=== PATIENT | male | born 1985 | race Caucasian/White ===

== ENCOUNTER 2018-10-30 03:38 | Inpatient (IN) | payer OTHER ==
[2018-10-30] VITALS (23 sets, daily range): BP systolic 98–141; BP diastolic 43–103; PULSE 87–113; RESP 10–30; Ht 170.2 cm; Wt 99.6 kg
[~2018-10-30] VITALS: Ht 170.2 cm; Wt 99.6 kg
[2018-10-30] MEDS ORDERED: ONDANSETRON 4 MG INJ IV STA (03:40)
[2018-10-30] MEDS ORDERED: SOD CHLORIDE 0.9% 1,000 ML IV STA (03:40)
[2018-10-30] MEDS ORDERED: ALBUTEROL 0.083% (NEB) 2.5 MG/3 ML AMP NEB STA (03:55)
[2018-10-30] MEDS ORDERED: IPRATROPIUM (NEB) 0.5 MG/2.5 ML AMP NEB STA (03:55)
[2018-10-30] MEDS ORDERED: VANCOMYCIN 1 GM (PMX) 250 ML IVPB STA (04:41)
[2018-10-30] MEDS ORDERED: PIPER-TAZO 3.375 GM IV (PMX) 100 ML IVPB STA (04:41)
[2018-10-30] MEDS ORDERED: NALOXONE 2 MG SYG IV ONE (05:00)
[2018-10-30] MEDS ORDERED: ONDANSETRON 4 MG INJ IV PRN ×2 (05:00→06:00)
[2018-10-30] MEDS ORDERED: ACETAMINOPHEN 325 MG TAB PO PRN (05:00)
--- NOTE | 2018-10-30 05:09 | ERD ---
ER Documentation Chief Complaint Chief Complaint RICARDO,from a constitution party,overdosed on cocaine HPI This is a 33-year-old male presents to the emergency room for evaluation of overdose. According to EMS this patient and 3 of his friends were at a constitution party and there were snorting an unknown substance. All 4 of were found unconscious. According to EMS they had to give this patient 6 mg of Narcan before he had any type of response. The patient then vomited. The patient does not know what the powder was that he snorted. The patient states that he was drinking alcohol as well. The patient denies any chest pain or fevers or abdominal pain at this time but does state that he is short of breath. ROS All systems reviewed and are negative except as per history of present illness. Allergies Allergies: Coded Allergies: No Known Allergy (Unverified , 10/30/18) PMhx/Soc Medical and Surgical Hx: pt denies Medical Hx, pt denies Surgical Hx Hx Alcohol Use: Yes Hx Substance Use: Yes (cocaine, heroin) Hx Tobacco Use: No Smoking Status: Never smoker Physical Exam Vitals Vital Signs Date Temp Pulse Resp B/P (MAP) Pulse Ox O2 O2 Flow FiO2 Time Delivery Rate 10/30/18 111 24 91 Simple 12.0 04:15 Mask 10/30/18 97.7 112 17 140/92 88 03:46 (108) Physical Exam INITIAL VITAL SIGNS: Reviewed by me GENERAL: The patient is shoveled, mild respiratory distress HEENT: Dry mucous membranes, pupils equal, round, and reactive to light. EOMI. There is no scleral icterus. NECK: C-spine is soft and supple, there is no meningismus. There is no cervical lymphadenopathy. LUNGS: Breath sounds bilaterally HEART: Regular rate and rhythm, no murmurs, clicks, rubs or gallops. ABDOMEN: Soft, non-tender, non-distended. There are bowel sounds in all four quadrants. No rebound or guarding. EXTREMITIES: There is no peripheral cyanosis or edema. No focal swelling or erythema. NEUROLOGICAL: The patient moves all four extremities with 5/5 strength. Cranial nerves II - XII are intact. Normal gait. Alert and oriented SKIN: There is no apparent rash or petechiae. HEME/LYMPHATIC: There is no evidence of excessive bruising or lymphedema. PSYCHIATRIC: The patient does not appear anxious or depressed. Result Diagram: 10/30/18 04010/30/18 0401 Results 24 hrs Laboratory Tests Test 10/30/18 04:01 10/30/18 04:30 White Blood Count 10.8 10^3/ul Red Blood Count 5.59 10^6/ul Hemoglobin 16.3 g/dl Hematocrit 49.1 % Mean Corpuscular Volume 87.8 fl Mean Corpuscular Hemoglobin 29.2 pg Mean Corpuscular Hemoglobin Concent 33.2 g/dl Red Cell Distribution Width 13.2 % Platelet Count 262 10^3/UL Mean Platelet Volume 10.2 fl Immature Granulocytes % 1.000 % Neutrophils % 65.5 % Lymphocytes % 27.6 % Monocytes % 5.1 % Eosinophils % 0.5 % Basophils % 0.3 % Nucleated Red Blood Cells % 0.0 /100WBC Immature Granulocytes # 0.110 10^3/ul Neutrophils # 7.0 10^3/ul Lymphocytes # 3.0 10^3/ul Monocytes # 0.6 10^3/ul Eosinophils # 0.1 10^3/ul Basophils # 0.0 10^3/ul Nucleated Red Blood Cells # 0.0 10^3/ul Sodium Level 142 mmol/L Potassium Level 3.5 mmol/L Chloride Level 102 mmol/L Carbon Dioxide Level 23 mmol/L Anion Gap 17 Blood Urea Nitrogen 12 mg/dl Creatinine 1.00 mg/dl Est Glomerular Filtrat Rate mL/min > 60 mL/min Glucose Level 180 mg/dl Calcium Level 9.2 mg/dl Total Bilirubin 0.2 mg/dl Direct Bilirubin 0.00 mg/dl Indirect Bilirubin 0.2 mg/dl Aspartate Amino Transf (AST/SGOT) 115 IU/L Alanine Aminotransferase (ALT/SGPT) 143 IU/L Alkaline Phosphatase 101 IU/L Total Protein 7.6 g/dl Albumin 4.5 g/dl Globulin 3.10 g/dl Albumin/Globulin Ratio 1.45 Salicylates Level < 1.0 mg/dl Acetaminophen Level < 10.0 ug/ml Ethyl Alcohol Level 92.0 mg/dl Blood Gas Specimen Source Blood arterial Arterial Blood Date Drawn 10/30/2018 4:30:00 AM Arterial Blood pH (Temp corrected) 7.193 Arterial Blood pCO2 (Temp correct) 57.9 mmhg Arterial Blood pO2 (Temp corrected) 67.7 mmHG Arterial Blood HCO3 21.8 mmol/L Arterial Blood Base Excess -7.4 mmol/L Arterial Blood Oxygen Saturation 87.5 mmHG Krishan Test ACCEPTAB Arterial Blood Gas Puncture Site Right Radial Arterial Blood Carboxyhemoglobin 0.3 % Arterial Blood Methemoglobin 0.4 % Blood Gas A-a O2 Differential 587.4 mmHg Oxyhemoglobin Percent 86.9 % Blood Gas Temperature 37.0 C Blood Gas Modality MASK - NRB FiO2 100.0 % Blood Gas Critical Value Read Back Parish DEAL MD Blood Gas Notified Whom AA Blood Gas Notified Time 10/30/2018 4:42:48 AM Current Medications Medications Dose Sig/Zofia Start Time Status Last (Trade) Ordered Route PRN Stop Time Admin Dose Reason Admin Sodium 1,000 ml @ Q1H STAT 10/30/18 DC 10/30/18 Chloride 1,000 mls/hr IV 03:40 04:07 10/30/18 04:39 Ondansetron 4 mg ONCE STAT 10/30/18 DC 10/30/18 HCl (Zofran IV 03:40 04:06 Inj) 10/30/18 03:43 Albuterol 5 mg ONCE STAT 10/30/18 DC 10/30/18 (Proventil NEB 03:55 04:15 0.083% (Neb)) 10/30/18 03:56 Ipratropium 0.5 mg ONCE STAT 10/30/18 DC 10/30/18 Bowie NEB 03:55 04:15 (Atrovent 10/30/18 03:56 0.02% (Neb)) Vancomycin 250 ml @ ONCE STAT 10/30/18 HCl 125 mls/hr IVPB 04:41 10/30/18 06:40 Piperacillin 100 ml @ ONCE STAT 10/30/18 10/30/18 Sod/ 200 mls/hr IVPB 04:41 04:55 Tazobactam 10/30/18 05:10 Sod Naloxone 2 mg ONCE ONCE 10/30/18 DC 10/30/18 HCl IV 05:00 04:59 (Narcan) 10/30/18 05:01 Ondansetron 4 mg ER BRIDGE 10/30/18 HCl (Zofran PRN IV 05:00 Inj) NAUSEA/VOMITI 10/31/18 04:59 NG 650 mg ER BRIDGE 10/30/18 Acetaminophen PRN PO 05:00 (Tylenol .MILD PAIN 10/31/18 04:59 Tab) 1-3 OR TEMP Naloxone HCl 500 ml @ 0 TITRATE IV 10/30/18 2 mg/ mls/hr 05:30 Dextrose Procedures/MDM Chest X-ray 1V Interpreted by me: Soft Tissue: No acute abnormalities Bones: No acute abnormalities Mediastinum/Cardiac Silhouette/Lungs: [No acute abnormalities] This 33-year-old male presents to the ER for evaluation after he snorted no known powder. The patient did this with 3 of his friends and all 4 of these people were found unconscious and were taken at different hospitals. EMS stated they gave this patient 6 mg of Narcan before he had any type of response. It is possible that this patient starting fentanyl given the large amount of Narcan which is required. On my exam the patient has some dried vomit around his mouth however he was responsive. After approximately 30 minutes of being in the emergency room the patient started to become slightly obtunded again and was given 2 mg IV of Narcan with a resolution of his drowsiness. The patient's pulse ox was 79% on room air and on a simple mask was 88%. An ABG was obtained and the patient's CO2 level is elevated likely from respiratory depression secondary to opiate use. The patient's pH was 7.1. The patient is on a BiPAP candidate at this time given the fact that he did vomit. He has had a good response to the Narcan and will be started on a Narcan drip. The patient will benefit from admission to the intensive care unit. I have started this patient on vancomycin and Zosyn to cover him for any aspiration pneumonia. I spoken to panel physician Dr. Benz is aware and agrees with the plan of care. Critical Care: Excluding all billable procedures Time: 48 minutes Treatments/Evaluations: Close monitoring and treatment of unstable vital signs, cardiorespiratory, and neurologic status, while maintaining tight balance of fluid, respiratory, and cardiac interventions. Departure Diagnosis: Primary Impression: Acute respiratory failure with hypoxia Additional Impressions: Hypercapnia Respiratory acidosis Opiate overdose Condition: Serious VANCE DEAL DO Oct 30, 2018 05:09
[2018-10-30] MEDS ORDERED: NALOXONE 2 MG/2 ML SYG 2 MG in DEXTROSE 5% 498 ML IV SCH (05:30)
[2018-10-30] MEDS ORDERED: IPRATROPIUM (NEB) 0.5 MG/2.5 ML AMP NEB PRN (06:00)
[2018-10-30] MEDS ORDERED: BISACODYL (EC) 5 MG TAB PO PRN (06:00)
[2018-10-30] MEDS ORDERED: ALBUTEROL 0.083% (NEB) 2.5 MG/3 ML AMP NEB PRN (06:00)
[2018-10-30] MEDS ORDERED: DOCUSATE SODIUM 100 MG CAP PO PRN (06:00)
[2018-10-30] MEDS ORDERED: PANTOPRAZOLE 40 MG INJ IV SCH (06:00)
[2018-10-30] MEDS: MULTIVITAMINS 10 ML, THIAMINE 100 MG, FOLIC ACID 1 MG in SOD CHLORIDE 0.9% 1,000 ML IVPB SCH ×2 (06:37→08:16)
[2018-10-30] MEDS ORDERED: NITROGLYCERIN 50 MG/D5W (PMX) 250 ML ONE (09:46)
[2018-10-30] MEDS ORDERED: NA POLYST SULFON 15 GM/60 ML BTL PO ONE (16:00)
[2018-10-30] MEDS: SOD CHLORIDE 0.9% 1,000 ML IV SCH (16:17)
--- NOTE | 2018-10-30 16:27 | HP ---
DATE OF ADMISSION: 10/30/2018 PRESENTING COMPLAINT: Altered mentation. HISTORY OF PRESENTING COMPLAINT: A 33-year-old male was brought in by ambulance after his friend had called EMS and the patient was found to be unresponsive. When he got to the Emergency Room, he was not following commands and he was quite altered and he was treated with Narcan therapy. Apparently, EMS had given 6 mg of Narcan before they got any kind of response from the patient. When he got to the emergency room, he was not still fully responsive. He was also in respiratory failure with saturations via simple mask of 88% and was found to be hypercapnic on imaging and acidotic. He was started on a Narcan drip and transferred to the intensive care unit. 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 He reported feeling dehydrated and had been drinking alcohol as well. He denied fever, denied coughing. Denies chest pain at this time. Denies headaches. PAST MEDICAL HISTORY: Negative. PAST SURGICAL HISTORY: Patient denies. ALLERGIES: HE HAS NO KNOWN DRUG ALLERGIES. SOCIAL HISTORY: Positive for alcohol, substance use as noted above. REVIEW OF SYSTEMS: A 12-point review of system was done. Pertinent findings as in HPI. PHYSICAL EXAMINATION: VITAL SIGNS: At time of my review, his vital signs are improved, temperature 98.8, but still tachycardic to the 90s, respiratory rate 21, blood pressure 109/60, saturations 97% oxygen at high flow. GENERAL: The patient is alert and oriented, currently comfortable, no distress. HEENT: Head is normocephalic. Pupils equal and reactive. Mucous membranes slightly dry. Posterior pharynx clear of exudate. NECK: Supple, nontender. CHEST: With diminished but clear breath sounds without crackles or wheezes. CARDIOVASCULAR: S1 and 2, tachycardia, no murmurs. ABDOMEN: Soft, nontender, nondistended. There is no lower extremity edema. SKIN: Devoid of rash or jaundice. PSYCHIATRIC: The patient was calm, cooperative with exam. LABORATORY VALUES: CBC was unremarkable. Chemistry was also basically unremarkable, but he does have a transaminitis with elevation of his AST and ALT 115 and 143 respectively; i.e. toxicology was positive for alcohol and cocaine. A urinalysis was not suggestive of an infection. He had serial ABGs, the last of which showed a pH of 7.2, pCO2 of 54 and a pO2 of 101. ASSESSMENT: 1. Acute encephalopathy, likely toxic metabolic secondary to #2. 2. Accidental overdose based on cocaine and alcohol that responded to Narcan therapy. 3. Current alcohol or substance use with concern for abuse. 4. Respiratory acidosis, improved with respiratory failure secondary to #1. 5. Acute transaminitis likely ETOH hepatitis. PLAN: At this time, patient is much better. I believe he is stable to be downgraded to telemetry floor for monitoring for his tachycardia. We are going to also repeat a BMP at this time and see what is going on with his acidosis. Will also wean him off the high flow oxygen to nasal cannula and see if he is able to tolerate that. Continue serial monitoring. At this time, the patient is fully alert and able to eat. We will commence him on a diet, will likely be on vitamin supplementation and banana bag orally as he is more alert. He was counseled extensively on the need to not mix drugs, any more importantly not abuse drugs. Social service consultation has been obtained. I will provide resources to assist patient with help with this. We will continue to reinforce and offer what is available to him here in the hospital. Further interventions will depend on his clinical course. We will also be started on a Librium taper to help carmona off delirium tremens. Plan of care has been discussed with the patient in detail. Questions have been answered. For further information and clarification, please review the patient's chart. Prophylaxis, SCDs and PPI. Of note is that the patient is high risk for possible aspiration. No evidence of aspiration pneumonia is noted at this time, but will monitor him closely. Dictated By: TRINIDAD TENA MD, BA/CANDIE Conf#: [id number] DID#: [id number] MTDD
[2018-10-30] MEDS: CHLORDIAZEPOXIDE 25 MG CAP PO SCH (21:58)
[2018-10-30] MEDS: FAMOTIDINE 20 MG INJ IV SCH (21:59)
[2018-10-30] MEDS: DOCUSATE SODIUM 100 MG CAP PO SCH (21:59)
[2018-10-31] VITALS (11 sets, daily range): BP systolic 106–122; BP diastolic 60–71; PULSE 84–110; RESP 16–20
[2018-10-31] MEDS: SOD CHLORIDE 0.9% 1,000 ML IV SCH ×3 (03:09→22:00)
[2018-10-31] MEDS: MULTIVITAMINS THERAPEUTIC TAB PO SCH (08:35)
[2018-10-31] MEDS: DOCUSATE SODIUM 100 MG CAP PO SCH ×2 (08:35→20:35)
[2018-10-31] MEDS: FAMOTIDINE 20 MG INJ IV SCH (08:35)
[2018-10-31] MEDS: THIAMINE 100 MG TAB PO SCH (08:35)
[2018-10-31] MEDS: CHLORDIAZEPOXIDE 25 MG CAP PO SCH ×3 (08:35→20:38)
[2018-10-31] MEDS: FOLIC ACID 1 MG TAB PO SCH (08:36)
--- NOTE | 2018-10-31 11:28 | CONS ---
Assessment/Plan Assessment/Plan Assessment/Plan (Daily) Chest x-ray was reviewed which is showing mild interstitial prominence. Assessment and recommendations; 1. Patient admitted with acute alcohol intoxication with hypercapnic respiratory failure with marked overall interval improvement. 2. Acute renal injury, etiology is unclear. Possibly drug related. 3. Elevated liver enzymes with downward trend. 4. Anemia and thrombus cytopenia. Possibly alcohol-related. 5. Persistent hypoxemia. 6. Possibly some element of aspiration pneumonia. With initial chest x-ray being unremarkable. Continue current supportive care. Add Zosyn 2.25 g every 8 hours. Obtain follow-up chest x-ray in 24 hours. Monitor renal function. Consultation Date/Type/Reason Admit Date/Time Oct 30, 2018 at 04:46 Date of Consultation: Oct 31, 2018 Type of Consult Pulmonary Pulmonary consult requested for evaluation of hypoxemic and hypercapnic respiratory failure. Patient is a 39-year-old male who was brought into the hospital yesterday with altered mental status by EMS. Upon further evaluation patient was found to have significant elevation in alcohol level. Also there is a reported history of cocaine use. Patient was admitted to ICU and was given Narcan drip with significant improvement in mental status to the point where the patient now has been transferred to medical floor. Patient remains hypoxemic on high flow nasal cannula but was completely awake and alert and was able to give history by himself. He denies any chest pain, seizures, coughing, wheezing, nausea vomiti ng. Past medical history; 1. History of drug abuse. Medications; reviewed. Allergies; none. Social history; positive for alcohol and drug abuse. 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 Patient does have a supportive family. Review of systems; denies any headache, seizures. Any chest pain. Complains of mild shortness of breath. Denies any coughing, wheezing, sputum production hemoptysis. Denies any abdominal pain, nausea or vomiting. Denies any melena or hematochezia. Any urinary symptoms. Any orthopnea. General exam; young male, awake alert, on high flow nasal cannula. Currently in no distress. Date/Time of Note DATE: 10/31/18 TIME: 11:23 Past Medical History Medications Current Medications Ondansetron HCl (Zofran Inj) 4 mg Q6H PRN IV NAUSEA AND/OR VOMITING; Start 10/30/18 at 06:00 Albuterol (Proventil 0.083% (Neb)) 2.5 mg Q2H RESP THERAPY PRN NEB SHORTNESS OF BREATH; Start 10/30/18 at 06:00 Ipratropium [place] (Atrovent 0.02% (Neb)) 0.5 mg Q2H RESP THERAPY PRN NEB SHORTNESS OF BREATH; Start 10/30/18 at 06:00 Bisacodyl (Dulcolax) 5 mg DAILY PRN PO CONSTIPATION; Start 10/30/18 at 06:00 Famotidine (Pepcid Iv) 20 mg Q12 IV Last administered on 10/31/18 08:35; Admin Dose 20 MG; Start 10/30/18 at 21:00 Docusate Sodium (Colace) 100 mg BID PO Last administered on 10/31/18 08:35; Admin Dose 100 MG; Start 10/30/18 at 21:00 Sodium Chloride 1,000 ml @ 100 mls/hr Q10H IV Last administered on 10/31/18at 03:09; Admin Dose 100 MLS/HR; Start 10/30/18 at 16:00 Chlordiazepoxide (Librium) 25 mg TID PO Last administered on 10/31/18 08:35; Admin Dose 25 MG; Start 10/30/18 at 21:00; Stop 11/02/18 at 20:59 Multivitamins Therapeutic (Theragran) 1 tab DAILY PO Last administered on 10/31/18 08:35; Admin Dose 1 TAB; Start 10/31/18 at 09:00 Thiamine HCl (Vitamin B1) 100 mg DAILY PO Last administered on 10/31/18 08:35; Admin Dose 100 MG; Start 10/31/18 at 09:00 Folic Acid (Folic Acid) 1 mg DAILY PO Last administered on 10/31/18at 08:36; Admin Dose 1 MG; Start 10/31/18 at 09:00 Influenza Virus Vaccine Quadrival (Fluzone) 0.5 ml ONCE ONCE IM* ; Start at 10:00; Stop 11/01/18 at 10:01 Allergies: Coded Allergies: No Known Allergy (Unverified , 10/30/18) Social History Smoking Status: Never smoker Exam/Review of Systems Exam Vitals Vital Signs Date Temp Pulse Resp B/P (MAP) Pulse Ox O2 O2 Flow FiO2 Time Delivery Rate 10/31/18 96 55 09:58 10/31/18 98.8 09:30 10/31/18 99 08:01 10/31/18 Vapotherm 07:37 10/31/18 18 106/66 07:34 (79) 10/30/18 12.0 04:15 Intake and Output 10/30/18 10/30/18 10/31/18 1515:00 23:00 07:00 IntakeIntake Total 875 ml 800 ml 5300 ml OutputOutput Total 720 ml 900 ml 3200 ml BalanceBalance 155 ml -100 ml 2100 ml Exam HEENT exam; supple neck, no JVD. No lymphadenopathy. Midline trachea. No thyromegaly. Patient has fair dentition. Pupils are midsize. Chest exam; diminished but clear breath sounds. S1-S2 audible, no murmurs. Regular rhythm. Abdomen exam; soft, nontender. No organomegaly. Bowel sounds audible. Extremity exam; no peripheral edema clubbing. Pulses 2+. INFORMATICS PHARMACIST exam; patient is awake responsive exhibiting no focal deficit. Results Result Diagram: 10/31/18 0738 10/31/18 0738 Results 24hrs Laboratory Tests Test 10/30/18 13:09 10/30/18 14:26 10/31/18 07:38 Blood Gas Specimen Source Blood arterial Arterial Blood Date Drawn 10/30/2018 1:31:00 PM Arterial Blood pH 7.312 L (Temp corrected) Arterial Blood pCO2 49.7 H (Temp correct) Arterial Blood pO2 99.0 (Temp corrected) Arterial Blood HCO3 24.6 Arterial Blood Base Excess -2.3 Arterial Blood 96.8 Oxygen Saturation Krishan Test ACCEPTAB Arterial Blood Gas Right Radial Puncture Site Arterial 0.2 Blood Carboxyhemoglobin Arterial Blood Methemoglobin 0.4 Blood Gas A-a O2 564.3 H Differential Oxyhemoglobin Percent 96.2 Blood Gas Temperature 37.0 Blood Gas Modality HFNC FiO2 100.0 Blood Gas Notified Whom TM Blood Gas Notified Time 10/30/2018 1:41:00 PM Sodium Level 140 137 Potassium Level 5.2 H 3.6 Chloride Level 106 101 Carbon Dioxide Level 26 29 Anion Gap 8 # 7 Blood Urea Nitrogen 18 21 H Creatinine 1.36 H 1.76 H Est Glomerular Filtrat > 60 45 L Rate mL/min Glucose Level 122 # 114 Calcium Level 8.5 8.4 White Blood Count 11.8 H Red Blood Count 4.60 L Hemoglobin 13.4 L Hematocrit 41.1 L Mean Corpuscular Volume 89.3 Mean Corpuscular Hemoglobin 29.1 Mean Corpuscular 32.6 Hemoglobin Concent Red Cell Distribution Width 13.4 Platelet Count 176 # Mean Platelet Volume 10.6 H Immature Granulocytes % 0.600 H Neutrophils % 80.3 H Segmented Neutrophils 44 % (Manual) Band Neutrophils % (Manual) 33 H Lymphocytes % 13.5 L Lymphocytes % (Manual) 15 Reactive Lymphocytes 3 H % (Manual) Monocytes % 4.7 Monocytes % (Manual) 4 Eosinophils % 0.6 Eosinophils % (Manual) 1 Basophils % 0.3 Nucleated Red Blood Cells % 0.0 Immature Granulocytes # 0.070 H Neutrophils # 9.5 H Neutrophils # (Manual) 5.6 Band Neutrophils # 3.8 H Lymphocytes (Manual) 1.7 Lymphocytes # 1.6 Reactive Lymphocytes # 0.3 H Monocytes # 0.6 Monocytes # (Manual) 0.4 Eosinophils # 0.1 Basophils # 0.0 Nucleated Red Blood Cells # 0.0 Platelet Estimate NORMAL Poikilocytosis 1+ Anisocytosis 1+ Microcytosis 1+ Phosphorus Level 3.7 Magnesium Level 2.0 Total Bilirubin 0.9 Direct Bilirubin 0.00 Indirect Bilirubin 0.9 Aspartate Amino 41 # Transf (AST/SGOT) Alanine 85 H Aminotransferase (ALT/SGPT) Alkaline Phosphatase 60 Total Protein 5.8 #L Albumin 3.4 # Medications Medication Current Medications Ondansetron HCl (Zofran Inj) 4 mg Q6H PRN IV NAUSEA AND/OR VOMITING; Start 10/30/18 at 06:00 Albuterol (Proventil 0.083% (Neb)) 2.5 mg Q2H RESP THERAPY PRN NEB SHORTNESS OF BREATH; Start 10/30/18 at 06:00 Ipratropium [place] (Atrovent 0.02% (Neb)) 0.5 mg Q2H RESP THERAPY PRN NEB SHORTNESS OF BREATH; Start 10/30/18 at 06:00 Bisacodyl (Dulcolax) 5 mg DAILY PRN PO CONSTIPATION; Start 10/30/18 at 06:00 Famotidine (Pepcid Iv) 20 mg Q12 IV Last administered on 10/31/18 08:35; Admin Dose 20 MG; Start 10/30/18 at 21:00 Docusate Sodium (Colace) 100 mg BID PO Last administered on 10/31/18 08:35; Admin Dose 100 MG; Start 10/30/18 at 21:00 Sodium Chloride 1,000 ml @ 100 mls/hr Q10H IV Last administered on 10/31/18 03:09; Admin Dose 100 MLS/HR; Start 10/30/18 at 16:00 Chlordiazepoxide (Librium) 25 mg TID PO Last administered on 10/31/18 08:35; Admin Dose 25 MG; Start 10/30/18 at 21:00; Stop 11/02/18 at 20:59 Multivitamins Therapeutic (Theragran) 1 tab DAILY PO Last administered on 10/31/18 08:35; Admin Dose 1 TAB; Start 10/31/18 at 09:00 Thiamine HCl (Vitamin B1) 100 mg DAILY PO Last administered on 10/31/18 08:35; Admin Dose 100 MG; Start 10/31/18 at 09:00 Folic Acid (Folic Acid) 1 mg DAILY PO Last administered on 10/31/18 08:36; Adm in Dose 1 MG; Start 10/31/18 at 09:00 Influenza Virus Vaccine Quadrival (Fluzone) 0.5 ml ONCE ONCE IM* ; Start 11/01/18 at 10:00; Stop 11/01/18 at 10:01 WYATT GARDNER Oct 31, 2018 11:28
[2018-10-31] MEDS: PIPER-TAZO 2.25 GM (PMX) 50 ML IVPB SCH ×2 (13:31→21:57)
--- NOTE | 2018-10-31 18:21 | CONS ---
DATE OF ADMISSION: 10/30/2018 DATE OF CONSULTATION: 10/31/2018 TYPE OF CONSULTATION: Nephrology. REASON FOR CONSULTATION: Hyperkalemia, acute kidney injury. PHYSICIAN REQUESTING CONSULT: Trinidad Tena MD HISTORY OF PRESENT ILLNESS: This is a 33-year-old male with no apparent past medical history, who pr esents to [facility] Emergency Room with altered mental status. The patient appare ntly was abusing narcotics. The patient was noted to be altered. EMS services were called. The pat chinedu was given Narcan in the field with improvement in mental status. The patient vomited and was br ought into the emergency room. The patient was subsequently admitted to telemetry. While in telemet ry, the patient has been on high flow oxygen due to hypercapnic respiratory failure. In terms of patient's renal history on admission, the patient had a creatinine 1.0 mg/dL which is inc reased to 1.76 mg/dL. During this time, the patient was also noted to be hyperkalemic with initial p otassium of 5.2 mg/dL. The patient has had adequate urinary output. He denied any hemoptysis, hemat emesis. Denied any rashes, any hematuria. PAST MEDICAL HISTORY: None. ALLERGIES: NONE. FAMILY HISTORY: No family history of kidney disease. SOCIAL HISTORY: Does not drink, smoke. Positive for drug use. PAST SURGICAL HISTORY: None. REVIEW OF SYSTEMS: A 14-point review of systems conducted. Pertinent positives stated in HPI, other spencer negative. PHYSICAL EXAMINATION: VITAL SIGNS: Blood pressure is 121/71, respirations 16, pulse 93, temperature 99.1. HEENT: Head is normocephalic. NECK: Supple. HEART: Regular rate. LUNGS: Show diminished breath sounds at the base. ABDOMEN: Soft, nontender to palpation without rebound or guarding. EXTREMITIES: Negative for clubbing, cyanosis. No edema. DERMATOLOGIC: No rashes. MUSCULOSKELETAL: No joint effusions. NEUROLOGIC: No change in exam. LABORATORY DATA: Show sodium 136, potassium 3.6, BUN 21, creatinine 1.76. White count 11.8, hemoglo bin 13.4, platelet count is 176. ASSESSMENT AND PLAN: This is a 33-year-old male who presents with: 1. Nonoliguric acute kidney injury with unknown baseline creatinine. Etiology of acute tubular inju ry is likely secondary to hemodynamics, possible acute tubular necrosis due to nephrotoxicity, ischem ic hypoperfusion. The patient's initial urinalysis is bland, no active sediment and renal ultrasound is bland. Recommendation at this point would be to continue current treatment plan, continue IV flu ids, continue supportive care, renally dose all meds, avoid nephrotoxins. 2. Mild hyperkalemia, possibly secondary to acute kidney injury. The patient's potassium levels hav e normalized. Continue to monitor. 3. Anemia. Monitor hemoglobin and hematocrit levels. 4. Mineral bone disorder. Monitor calcium and phosphorus levels. 5. Acute hypoxemic hypercapnic respiratory failure secondary to likely from polysubstance abuse. Co ntinue to monitor. Continue high flow oxygen. Continue antibiotic therapy. 6. Aspiration pneumonia. Continue antibiotic regimen. 7. History of polysubstance abuse. Continue to monitor for withdrawal. 8. Acute transaminitis likely due to EtOH abuse. Continue to monitor. Thank you, Dr. Tena, for this interesting consult. It will be a pleasure to follow the patient with y ou throughout the hospital course. Dictated By: NAIF HERNANDEZ DO NR/NTS Conf#: [id number] DID#: [id number] CC: ISAAC EASTMAN MD; TRINIDAD TENA MD; FELIX VELARDE MD;*EndCC*
[2018-10-31] MEDS: FAMOTIDINE 20 MG TAB PO SCH (20:35)
[2018-11-01] VITALS (11 sets, daily range): BP systolic 106–138; BP diastolic 59–78; PULSE 72–99; RESP 18–20
[2018-11-01] MEDS ORDERED: ACETAMINOPHEN 325 MG TAB PO PRN (04:30)
[2018-11-01] MEDS: PIPER-TAZO 2.25 GM (PMX) 50 ML IVPB SCH ×3 (05:57→21:55)
[2018-11-01] MEDS: CHLORDIAZEPOXIDE 25 MG CAP PO SCH ×3 (09:00→21:54)
[2018-11-01] MEDS: FOLIC ACID 1 MG TAB PO SCH (09:03)
[2018-11-01] MEDS: FAMOTIDINE 20 MG TAB PO SCH ×2 (09:03→21:54)
[2018-11-01] MEDS: THIAMINE 100 MG TAB PO SCH (09:03)
[2018-11-01] MEDS: DOCUSATE SODIUM 100 MG CAP PO SCH ×2 (09:03→21:54)
[2018-11-01] MEDS: MULTIVITAMINS THERAPEUTIC TAB PO SCH (09:04)
[2018-11-01] MEDS ORDERED: INFLUENZA VIRUS VACCINE 0.5 ML (DISPENSING) IM* ONE (10:00)
--- NOTE | 2018-11-01 10:50 | PN ---
DATE: 11/01/2018 SUBJECTIVE: The patient is clinically stable, remains on high flow oxygen. No other events noted. OBJECTIVE: VITAL SIGNS: Blood pressure is 106/59, pulse 88, temperature 98.1. HEENT: Head is normocephalic. NECK: Supple. HEART: Regular rate. LUNGS: Show diminished breath sounds at the base. ABDOMEN: Soft, nontender to palpation without rebound or guarding. EXTREMITIES: Negative for clubbing, cyanosis, no edema. DERMATOLOGIC: No rashes. MUSCULOSKELETAL: No joint effusion. NEUROLOGIC: No change in exam. MEDICATIONS: Reviewed. LABORATORY DATA: Reviewed. ASSESSMENT AND PLAN: 1. Nonoliguric acute kidney injury with unknown baseline creatinine. Etiology is secondary to acute tubular necrosis. Renal function has improved in last 24 hours. At this point, continue current tr eatment plan, supportive care, renally dose all medicines. 2. Mild hyperkalemia, resolved. 3. Anemia. Continue to monitor hemoglobin and hematocrit levels. 4. Mineral bone disorder, monitor calcium and phosphorus levels. 5. Acute hypoxemic hypercapnic respiratory failure secondary to aspiration pneumonia. Continue high flow oxygen. Continue antibiotic therapy. Continue to monitor. 6. Aspiration pneumonia. Continue current antibiotic regimen. 7. Polysubstance abuse. Continue to monitor for withdrawal. 8. Acute transaminitis, likely due to ETOH. Continue to monitor. Dictated By: NAIF HERNANDEZ DO NR/NTS Conf#: [id number] DID#: [id number] CC: ISAAC EASTMAN MD; FELIX VELARDE MD; TRINIDAD TENA MD;*End*
[2018-11-01] MEDS: SOD CHLORIDE 0.9% 1,000 ML IV SCH ×2 (11:03→17:13)
--- NOTE | 2018-11-01 11:05 | CONS ---
Assessment/Plan Assessment/Plan Assessment/Plan (Daily) CT chest was reviewed from yesterday showing bilateral pneumonia indicative of aspiration pneumonia. Assessment recommendations; 1. Patient admitted with acute alcohol intoxication with severe hypercapnic respiratory failure, patient however did not require intubation with significant improvement in overall clinical status. 2. Acute renal injury with improving renal function. 3. Bilateral aspiration pneumonia more pronounced in right lung. Patient currently on appropriate antimicrobial regimen. 4. Anemia and thrombocytopenia. Continue current supportive care. Wean down FiO2 as tolerated. Obtain follow- up chest x-ray in 48 hours. Consultation Date/Type/Reason Admit Date/Time Oct 30, 2018 at 04:46 Initial Consult Date 10/31/18 Type of Consult Pulmonary Pulmonary consult requested for evaluation of hypoxemic and hypercapnic respiratory failure. Patient is a 39-year-old male who was brought into the hospital yesterday with altered mental status by EMS. Upon further evaluation patient was found to have significant elevation in alcohol level. Also there is a reported history of cocaine use. Patient was admitted to ICU and was given Narcan drip with significant improvement in mental status to the point where the patient now has been transferred to medical floor. Patient remains hypoxemic on high flow nasal cannula but was completely awake and alert and was able to give history by himself. He denies any chest pain, seizures, coughing, wheezing, nausea vomiting. Past medical history; 1. History of drug abuse. Medications; reviewed. Allergies; none. Social history; positive for alcohol and drug abuse. 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 Patient does have a supportive family. Review of systems; denies any headache, seizures. Any chest pain. Complains of mild shortness of breath. Denies any coughing, wheezing, sputum production hemoptysis. Denies any abdominal pain, nausea or vomiting. Denies any melena or hematochezia. Any urinary symptoms. Any orthopnea. General exam; young male, awake alert, on high flow nasal cannula. Currently in no distress. Date/Time of Note DATE: 11/01/18 TIME: 11:03 24 HR Interval Summary Free Text/Dictation Patient's condition is stable though still requiring high flow nasal cannula at 50% FiO2. Denies any shortness of breath at rest, any coughing, wheezing. General exam; young male, awake alert, laying comfortably in bed. Currently in no distress. Exam/Review of Systems Exam Vitals Vital Signs Date Temp Pulse Resp B/P (MAP) Pulse Ox O2 O2 Flow FiO2 Time Delivery Rate 11/01/18 96 50 08:03 11/01/18 85 08:01 11/01/18 Vapotherm 08:00 11/01/18 98.1 18 106/59 07:33 (75) 10/30/18 12.0 04:15 Intake and Output 10/31/18 10/31/18 11/01/18 1515:00 23:00 07:00 IntakeIntake Total 2650 ml 1200 ml OutputOutput Total 1400 ml 950 ml BalanceBalance 1250 ml 250 ml Exam H EENT exam; supple neck, no JVD. No lymphadenopathy. Midline trachea. No thyromegaly. Patient has fair dentition. No neck masses. Chest exam; diminished but clear breath sounds. S1-S2 audible, no murmurs. Regular rhythm. Abdomen exam; soft, no organomegaly. Bowel sounds audible. Extremity exam; no peripheral edema clubbing. 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 Results Result Diagram: 11/01/18 0542 11/01/18 0542 Results 24hrs Laboratory Tests Test 10/31/18 11:50 11/01/18 05:42 Urine Color STRAW Urine Clarity CLEAR Urine pH 7.0 Urine Specific [place] 1.004 Urine Ketones NEGATIVE Urine Nitrite NEGATIVE Urine Bilirubin NEGATIVE Urine Urobilinogen NEGATIVE Urine Leukocyte Esterase NEGATIVE Urine Microscopic RBC 0 Urine Microscopic WBC 1 Urine Hemoglobin 1+ H Urine Random Creatinine 28.89 Urine Random Sodium 58 Urine Glucose NEGATIVE Urine Total Protein 23.0 H White Blood Count 11.5 H Red Blood Count 4.42 L Hemoglobin 13.0 L Hematocrit 39.4 L Mean Corpuscular Volume 89.1 Mean Corpuscular Hemoglobin 29.4 Mean Corpuscular Hemoglobin Concent 33.0 Red Cell Distribution Width 13.0 Platelet Count 176 Mean Platelet Volume 10.5 H Immature Granulocytes % 0.700 H Neutrophils % 82.7 H Lymphocytes % 9.8 L Monocytes % 5.5 Eosinophils % 1.0 Basophils % 0.3 Nucleated Red Blood Cells % 0.0 Immature Granulocytes # 0.080 H Neutrophils # 9.5 H Lymphocytes # 1.1 Monocytes # 0.6 Eosinophils # 0.1 Basophils # 0.0 Nucleated Red Blood Cells # 0.0 Sodium Level 139 Potassium Level 3.6 Chloride Level 105 Carbon Dioxide Level 26 Anion Gap 8 Blood Urea Nitrogen 18 Creatinine 1.51 H Est Glomerular Filtrat Rate mL/min 54 L Glucose Level 117 Calcium Level 8.9 Medications Medication Current Medications Ondansetron HCl (Zofran Inj) 4 mg Q6H PRN IV NAUSEA AND/OR VOMITING; Start at 06:00 Albuterol (Proventil 0.083% (Neb)) 2.5 mg Q2H RESP THERAPY PRN NEB SHORTNESS OF BREATH; Start 10/30/18 at 06:00 Ipratropium [place] (Atrovent 0.02% (Neb)) 0.5 mg Q2H RESP THERAPY PRN NEB SHORTNESS OF BREATH; Start 10/30/18 at 06:00 Bisacodyl (Dulcolax) 5 mg DAILY PRN PO CONSTIPATION; Start 10/30/18 at 06:00 Docusate Sodium (Colace) 100 mg BID PO Last administered on 11/01/18 09:03; Admin Dose 100 MG; Start 10/30/18 at 21:00 Sodium Chloride 1,000 ml @ 100 mls/hr Q10H IV Last administered on 10/31/18at 22:00; Admin Dose 100 MLS/HR; Start 10/30/18 at 16:00 Chlordiazepoxide (Librium) 25 mg TID PO Last administered on 10/31/18at 12:35; Admin Dose 25 MG; Start 10/30/18 at 21:00; Stop 11/02/18 at 20:59 Multivitamins Therapeutic (Theragran) 1 tab DAILY PO Last administered on 11/01/18 09:04; Admin Dose 1 TAB; Start 10/31/18 at 09:00 Thiamine HCl (Vitamin B1) 100 mg DAILY PO Last administered on 11/01/18 09:03; Admin Dose 100 MG; Start 10/31/18 at 09:00 Folic Acid (Folic Acid) 1 mg DAILY PO Last administered on 11/01/18 09:03; Admin Dose 1 MG; Start 10/31/18 at 09:00 Piperacillin Sod/ Tazobactam Sod 50 ml @ 100 mls/hr Q8 IVPB Last administered on 11/01/18at 05:57; Admin Dose 100 MLS/HR; Start 3/26/19 at 14:00 Famotidine (Pepcid) 20 mg Q12 PO Last administered on 11/01/18 09:03; Admin Dose 20 MG; Start 10/31/18 at 21:00 Acetaminophen (Tylenol Tab) 650 mg Q6H PRN PO MILD PAIN(1-3)OR ELEVATED TEMP Last administered on 11/01/18at 04:21; Admin Dose 650 MG; Start 11/01/18 at 04:30 WYATT GARDNER Nov 01, 2018 11:05
[2018-11-02] VITALS (7 sets, daily range): BP systolic 116–124; BP diastolic 66–81; PULSE 72–94; RESP 16–19
[2018-11-02] MEDS: SOD CHLORIDE 0.9% 1,000 ML IV SCH (00:25)
[2018-11-02] MEDS: PIPER-TAZO 2.25 GM (PMX) 50 ML IVPB SCH (05:40)
[2018-11-02] MEDS: CHLORDIAZEPOXIDE 25 MG CAP PO SCH ×2 (09:00→13:00)
[2018-11-02] MEDS: MULTIVITAMINS THERAPEUTIC TAB PO SCH (09:06)
[2018-11-02] MEDS: THIAMINE 100 MG TAB PO SCH (09:06)
[2018-11-02] MEDS: FAMOTIDINE 20 MG TAB PO SCH (09:06)
[2018-11-02] MEDS: FOLIC ACID 1 MG TAB PO SCH (09:07)
[2018-11-02] MEDS: DOCUSATE SODIUM 100 MG CAP PO SCH (09:07)
--- NOTE | 2018-11-02 10:10 | PN ---
Date/Time of Note Date/Time of Note DATE: 11/02/18 TIME: 10:10 Assessment/Plan VTE Prophylaxis Risk score (from Ns)>0 risk: 1 SCD applied (from Ns): Yes Pharmacological prophylaxis: NA/contraindicated Pharm contraindication: low risk/ambulating Lines/Catheters IV [facility]ter [facility] (from [facility]): Peripheral IV Urinary Cath still in place: No Assessment/Plan Hospital Course assessment and plan: 1. Acute encephalopathy secondary to #2: resolved 2. Accidental overdose 3. Acute respiratory failure secondary to #4 4. Probable Aspiration pneumonia 5. Multi-substance abuse including cocaine and alcohol -Cessation Therapy: Pt. was counselled for greater than 3 minutes on the health risks of continued substance use and the benefits of cessation, this was reinforced throughout hospitalization. SW has provided assistive resources 6. Acute renal insufficiency: Resolved 7. Transaminitis: Improved Dispo: continue abx, continues weaning of O2, continue supportive care nurses to wean o2 to 2-3L then he may be able to be discharged home with o2 as he is so anxious to leave I did advise staying one more day and repeat CXR tomorrow per pulm recs, patient will think about it and let me know. Result Diagram: 11/02/18 0616 11/02/18 0617 Results 24hrs Laboratory Tests Test 11/02/18 06:16 11/02/18 06:17 White Blood Count 12.0 H Red Blood Count 4.62 L Hemoglobin 13.6 L Hematocrit 39.9 L Mean Corpuscular Volume 86.4 Mean Corpuscular Hemoglobin 29.4 Mean Corpuscular Hemoglobin Concent 34.1 Red Cell Distribution Width 12.7 Platelet Count 220 # Mean Platelet Volume 10.5 H Immature Granulocytes % 1.100 H Neutrophils % 77.7 H Lymphocytes % 12.3 L Monocytes % 7.1 Eosinophils % 1.5 Basophils % 0.3 Nucleated Red Blood Cells % 0.0 Immature Granulocytes # 0.130 H Neutrophils # 9.3 H Lymphocytes # 1.5 Monocytes # 0.9 Eosinophils # 0.2 Basophils # 0.0 Nucleated Red Blood Cells # 0.0 Sodium Level 142 Potassium Level 3.8 Chloride Level 104 Carbon Dioxide Level 25 Anion Gap 13 Blood Urea Nitrogen 14 Creatinine 1.19 Est Glomerular Filtrat Rate mL/min > 60 Glucose Level 106 Calcium Level 9.2 Subjective 24 Hr Interval Summary Free Text/Dictation patient is still on 6 L Exam/Review of Systems Exam Vitals Vital Signs Date Temp Pulse Resp B/P (MAP) Pulse Ox O2 O2 Flow FiO2 Time Delivery Rate 11/02/18 88 08:46 11/02/18 98.7 19 117/66 96 07:52 (83) 11/02/18 Nasal 6.0 04:13 Cannula 11/01/18 35 15:54 Intake and Output 11/01/18 11/01/18 11/02/18 1515:00 23:00 07:00 IntakeIntake Total 2650 ml 1000 ml OutputOutput Total 625 ml BalanceBalance 2650 ml 375 ml Constitutional: alert, oriented Head: normocephalic Eyes: PERRL Neck: supple Respiratory: diminished breath sounds, wheezing (occasional) Gastrointestinal: soft, non-tender, bowel sounds Extremities: No edema Results Results 24hrs Laboratory Tests Test 11/02/18 06:16 11/02/18 06:17 White Blood Count 12.0 H Red Blood Count 4.62 L Hemoglobin 13.6 L Hematocrit 39.9 L Mean Corpuscular Volume 86.4 Mean Corpuscular Hemoglobin 29.4 Mean Corpuscular Hemoglobin Concent 34.1 Red Cell Distribution Width 12.7 Platelet Count 220 # Mean Platelet Volume 10.5 H Immature Granulocytes % 1.100 H Neutrophils % 77.7 H Lymphocytes % 12.3 L Monocytes % 7.1 Eosinophils % 1.5 Basophils % 0.3 Nucleated Red Blood Cells % 0.0 Immature Granulocytes # 0.130 H Neutrophils # 9.3 H Lymphocytes # 1.5 Monocytes # 0.9 Eosinophils # 0.2 Basophils # 0.0 Nucleated Red Blood Cells # 0.0 Sodium Level 142 Potassium Level 3.8 Chloride Level 104 Carbon Dioxide Level 25 Anion Gap 13 Blood Urea Nitrogen 14 Creatinine 1.19 Est Glomerular Filtrat Rate mL/min > 60 Glucose Level 106 Calcium Level 9.2 Medications Medication Current Medications Ondansetron HCl (Zofran Inj) 4 mg Q6H PRN IV NAUSEA AND/OR VOMITING; Start 10/30/18 at 06:00 Albuterol (Proventil 0.083% (Neb)) 2.5 mg Q2H RESP THERAPY PRN NEB SHORTNESS OF BREATH; Start 10/30/18 at 06:00 Ipratropium [place] (Atrovent 0.02% (Neb)) 0.5 mg Q2H RESP THERAPY PRN NEB SHORTNESS OF BREATH; Start 10/30/18 at 06:00 Bisacodyl (Dulcolax) 5 mg DAILY PRN PO CONSTIPATION; Start 10/30/18 at 06:00 Docusate Sodium (Colace) 100 mg BID PO Last administered on 11/02/18 09:07; Admin Dose 100 MG; Start 10/30/18 at 21:00 Chlordiazepoxide (Librium) 25 mg TID PO Last administered on 11/01/18 21:54; Admin Dose 25 MG; Start 10/30/18 at 21:00; Stop 11/02/18 at 20:59 Multivitamins Therapeutic (Theragran) 1 tab DAILY PO Last administered on 11/02/18 09:06; Admin Dose 1 TAB; Start 10/31/18 at 09:00 Thiamine HCl (Vitamin B1) 100 mg DAILY PO Last administered on 11/02/18 09:06; Admin Dose 100 MG; Start 10/31/18 at 09:00 Folic Acid (Folic Acid) 1 mg DAILY PO Last administered on 11/02/18 09:07; Admin Dose 1 MG; Start 10/31/18 at 09:00 Piperacillin Sod/ Tazobactam Sod 50 ml @ 100 mls/hr Q8 IVPB Last administered on 11/02/18 05:40; Admin Dose 100 MLS/HR; Start 10/31/18 at 14:00 Famotidine (Pepcid) 20 mg Q12 PO Last administered on 11/02/18 09:06; Admin Dose 20 MG; Start 10/31/18 at 21:00 Acetaminophen (Tylenol Tab) 650 mg Q6H PRN PO MILD PAIN(1-3)OR ELEVATED TEMP Last administered on 11/01/18 04:21; Admin Dose 650 MG; Start 11/01/18 at 04:30 TRINIDAD TENA Nov 02, 2018 10:10
--- NOTE | 2018-11-02 10:10 | EN ---
Date/Time of Note Date/Time of Note DATE Of evaluation : 10/31/18 TIME: 12:10 Event Note Medicine Medicine Event Note S: feeling better, still on high flow, asking when he can go home Vitals Vital Signs Date Temp Pulse Resp B/P (MAP) Pulse Ox O2 O2 Flow FiO2 Time Delivery Rate 10/31/18 96 55 09:58 10/31/18 98.8 09:30 10/31/18 99 08:01 10/31/18 Vapotherm 07:37 10/31/18 18 106/66 07:34 (79) 10/30/18 12.0 04:15 Intake and Output 10/30/18 10/30/18 10/31/18 1515:00 23:00 07:00 IntakeIntake Total 875 ml 800 ml 5300 ml OutputOutput Total 720 ml 900 ml 3200 ml BalanceBalance 155 ml -100 ml 2100 ml Exam General: A&O x3, answering questions appropriately HEENT: NC/ AT. PERRL. EOM intact Neck: supple CVS: S1, S2, RRR. no murmurs. no pain on chest wall palpation Lungs: CTA b/l. no wheezing or rhonchi but quite diminished Abd: soft, nontender, +BS Ext: moving all extremities skin: no rashes assessment and plan: 1. Acute encephalopathy secondary to #2 2. Accidental overdose 3. Acute respiratory failure secondary to #4 4. Probable Aspiration pneumonia 5. Multi-substance abuse including cocaine and alcohol 6. Acute renal insufficiency: Resolved 7. Transaminitis: Improved Dispo: continue abx, continues weaning of O2, continue supportive care -chest Ct to eval lung parenchyma anticipate d/c home with no needs . TRINIDAD TENA Nov 02, 2018 10:10
--- NOTE | 2018-11-02 10:28 | PN ---
DATE: 11/02/2018 SUBJECTIVE: The patient is stable, weaned off high flow. No other acute events noted. No hemoptysi s, hematemesis or hematochezia. OBJECTIVE: VITAL SIGNS: Blood pressure is 117/66, respiration 19, pulse 84, temperature 98.6. HEENT: Head is normocephalic. NECK: Supple. HEART: Regular rate. LUNGS: Show diminished breath sounds at the base. ABDOMEN: Soft, nontender to palpation. No rebound or guarding. EXTREMITIES: Negative for clubbing, cyanosis, no edema. DERMATOLOGIC: No rashes. MUSCULOSKELETAL: No joint effusion. NEUROLOGIC: No change in exam. MEDICATIONS: Reviewed. LABORATORY DATA: Has been reviewed. ASSESSMENT AND PLAN: 1. Nonoliguric acute kidney injury with unknown baseline creatinine. Etiology secondary to acute tu bular necrosis. Renal function is improved. At this point, continue current treatment plan, support loraine care, renally dose all meds. 2. Mild hyperkalemia, resolved. 3. Anemia. Monitor hemoglobin and hematocrit levels. 4. Mineral bone disorder. Monitor calcium and phosphorus levels. 5. Acute hypoxemic respiratory failure, secondary to aspiration pneumonia. The patient is currently off high flow. Continue antibiotic therapy. Continue supplemental oxygen. 6. Aspiration pneumonia. Continue current antibiotic regimen. 7. Polysubstance abuse. Continue to monitor. 8. Transaminitis, likely due to ETOH abuse. Continue to monitor, improving. Dictated By: NAIF HERNANDEZ DO NR/NTS Conf#: [id number] DID#: [id number] CC: FELIX VELARDE MD;*EndCC*
--- NOTE | 2018-11-02 11:28 | CONS ---
Assessment/Plan Assessment/Plan Assessment/Plan (Daily) Assessment and recommendations; 1. Patient admitted with acute alcohol intoxication with acute renal failure as well as significant lactic acidosis and sepsis with significant overall clinical improvement. Renal function is continually improving. 2. Aspiration pneumonia involving right lung, currently on Zosyn. 3. Anemia and thrombocytopenia. Possibly alcohol-related. 4. Interval resolution of acute encephalopathy. Continue current supportive care. Obtain follow-up chest x-ray 24 hours. Consultation Date/Type/Reason Admit Date/Time Oct 30, 2018 at 04:46 Initial Consult Date 10/31/18 Type of Consult Pulmonary Pulmonary consult requested for evaluation of hypoxemic and hypercapnic respiratory failure. Patient is a 39-year-old male who was brought into the hospital yesterday with altered mental status by EMS. Upon further evaluation patient was found to have significant elevation in alcohol level. Also there is a reported history of cocaine use. Patient was admitted to ICU and was given Narcan drip with significant improvement in mental status to the point where the patient now has been transferred to medical floor. Patient remains hypoxemic on high flow nasal cannula but was completely awake and alert and was able to give history by himself. He denies any chest pain, seizures, coughing, wheezing, nausea vomiting. Past medical history; 1. History of drug abuse. Medications; reviewed. Allergies; none. Social history; positive for alcohol and drug abuse. 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 Patient does have a supportive family. Review of systems; denies any headache, seizures. Any chest pain. Complains of mild shortness of breath. Denies any coughing, wheezing, sputum production hemoptysis. Denies any abdominal pain, nausea or vomiting. Denies any melena or hematochezia. Any urinary symptoms. Any orthopnea. General exam; young male, awake alert, on high flow nasal cannula. Currently in no distress. Date/Time of Note DATE: 11/02/18 TIME: 11:26 24 HR Interval Summary Free Text/Dictation Patient's condition is stable. Denies any shortness of breath. Any coughing, wheezing, sputum production. Any fever or chills. General exam; young male, awake alert, currently no distress. Exam/Review of Systems Exam Vitals Vital Signs Date Temp Pulse Resp B/P (MAP) Pulse Ox O2 O2 Flow FiO2 Time Delivery Rate 11/02/18 88 08:46 11/02/18 98.7 19 117/66 96 07:52 (83) 11/02/18 Nasal 6.0 04:13 Cannula 11/01/18 35 15:54 Intake and Output 11/01/18 11/01/18 11/02/18 1515:00 23:00 07:00 IntakeIntake Total 2650 ml 1000 ml OutputOutput Total 625 ml BalanceBalance 2650 ml 375 ml Exam HEENT exam; supple neck, no JVD. No lymphadenopathy. Midline trachea. No thyromegaly. Patient has good dentition. No neck masses. Chest exam; clear to auscultation. S1-S2 audible, no murmurs. Regular rhythm. Abdomen exam; soft, nontender. No organomegaly. Bowel sounds audible. Extremity exam; peripheral edema clubbing. 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 Results Result Diagram: 11/02/18 0616 11/02/18 0617 Results 24hrs Laboratory Tests Test 11/02/18 06:16 11/02/18 06:17 White Blood Count 12.0 H Red Blood Count 4.62 L Hemoglobin 13.6 L Hematocrit 39.9 L Mean Corpuscular Volume 86.4 Mean Corpuscular Hemoglobin 29.4 Mean Corpuscular Hemoglobin Concent 34.1 Red Cell Distribution Width 12.7 Platelet Count 220 # Mean Platelet Volume 10.5 H Immature Granulocytes % 1.100 H Neutrophils % 77.7 H Lymphocytes % 12.3 L Monocytes % 7.1 Eosinophils % 1.5 Basophils % 0.3 Nucleated Red Blood Cells % 0.0 Immature Granulocytes # 0.130 H Neutrophils # 9.3 H Lymphocytes # 1.5 Monocytes # 0.9 Eosinophils # 0.2 Basophils # 0.0 Nucleated Red Blood Cells # 0.0 Sodium Level 142 Potassium Level 3.8 Chloride Level 104 Carbon Dioxide Level 25 Anion Gap 13 Blood Urea Nitrogen 14 Creatinine 1.19 Est Glomerular Filtrat Rate mL/min > 60 Glucose Level 106 Calcium Level 9.2 Medications Medication Current Medications Ondansetron HCl (Zofran Inj) 4 mg Q6H PRN IV NAUSEA AND/OR VOMITING; Start 10/30/18 at 06:00 Albuterol (Proventil 0.083% (Neb)) 2.5 mg Q2H RESP THERAPY PRN NEB SHORTNESS OF BREATH; Start 10/30/18 at 06:00 Ipratropium [place] (Atrovent 0.02% (Neb)) 0.5 mg Q2H RESP THERAPY PRN NEB SHORTNESS OF BREATH; Start 10/30/18 at 06:00 Bisacodyl (Dulcolax) 5 mg DAILY PRN PO CONSTIPATION; Start 10/30/18 at 06:00 Docusate Sodium (Colace) 100 mg BID PO Last administered on 11/02/18 09:07; Admin Dose 100 MG; Start 10/30/18 at 21:00 Chlordiazepoxide (Librium) 25 mg TID PO Last administered on 11/01/18 21:54; Admin Dose 25 MG; Start 10/30/18 at 21:00; Stop 11/02/18 at 20:59 Multivitamins Therapeutic (Theragran) 1 tab DAILY PO Last administered on 11/02/18 09:06; Admin Dose 1 TAB; Start 10/31/18 at 09:00 Thiamine HCl (Vitamin B1) 100 mg DAILY PO Last administered on 11/02/18 09:06; Admin Dose 100 MG; Start 10/31/18 at 09:00 Folic Acid (Folic Acid) 1 mg DAILY PO Last administered on 11/02/18 09:07; Admin Dose 1 MG; Start 10/31/18 at 09:00 Piperacillin Sod/ Tazobactam Sod 50 ml @ 100 mls/hr Q8 IVPB Last administered on 11/02/18 05:40; Admin Dose 100 MLS/HR; Start 10/31/18 at 14:00 Famotidine (Pepcid) 20 mg Q12 PO Last administered on 11/02/18 09:06; Admin Do se 20 MG; Start 10/31/18 at 21:00 Acetaminophen (Tylenol Tab) 650 mg Q6H PRN PO MILD PAIN(1-3)OR ELEVATED TEMP Last administered on 11/01/18 04:21; Admin Dose 650 MG; Start 11/01/18 at 04:30 WYATT GARDNER Nov 02, 2018 11:28
[2018-11-02] MEDS ORDERED: THIA100T56 PO (16:32)
[2018-11-02] MEDS ORDERED: AMOX1TAB10 PO (16:32)
[2018-11-02] MEDS ORDERED: MULTI PO (16:32)
[2018-11-02] MEDS ORDERED: FOLI-49 PO (16:32)
[2018-11-02] MEDS ORDERED: ALBU2.5V3 NEB (16:34)
[2018-11-02] MEDS ORDERED: NEBU-113 MC (16:34)
--- NOTE | 2018-11-02 16:36 | PDOCDIS ---
Discharge Instructions CONDITION [id number] Patient Condition: [id number] Stable ACTIVITY: [id number] Activity Restrictions: [id number] Slowly Increase Activity Rest between Activity SCHOOL/WORK RELEASE May return to School/Work on: Nov 06, 2018 School/Work Release Comment: please excuse patient from work and Travel from 10/30/18 till 11/06/18 TRINIDAD TENA Nov 02, 2018 16:36
[2018-11-02] MEDS ORDERED: PIPER-TAZO 3.375 GM IV (PMX) 100 ML IVPB SCH (18:00)
--- NOTE | 2018-11-03 13:51 | DS ---
Date/Time of Note Date/Time of Note DATE: 11/03/18 TIME: 13:48 Discharge Summary Admission/Discharge Info Admit Date/Time Oct 30, 2018 at 04:46 Discharge Date/Time Nov 02, 2018 at 17:54 Discharge Diagnosis 1. Acute encephalopathy secondary to #2 2. Accidental overdose 3. Acute respiratory failure secondary to #1 4. Aspiration pneumonia 5. Multi-substance abuse including cocaine and alcohol 6. Acute renal insufficiency: Resolved 7. Transaminitis: Improved . Patient Condition: Stable Consults Pulmonary: [facility]: Solo Belcher MD . Hospital Course 33-year-old male who had come in after accidental overdose on cocaine and alcohol. He suffered respiratory failure and required a short course of ventilator support. He was successfully extubated but his hospital course was complicated by aspiration pneumonia. He was followed throughout by pulmonology, and review of discharge, he was doing well on room air and requested to be discharged home. We did recommend that he stay 1 more day, but the patient adamantly wanted to be discharged. Patient was also complicated by acute renal insufficiency which has completely resolved at this time. He was counseled extensively on the need to quit substance use and abuse, he was seen by health care social worker who provided resources. He was evaluated by myself on the day of discharge and assisted in stable condition. . Home Meds Active Scripts Nebulizer (Aeroneb Go Nebuliser) 1 Each Each, EACH , #1 Prov:SANDRA TENAMick Keller 11/02/18 Albuterol Sulfate* (Albuterol Sulfate* Neb) 0.083%-3 Ml Neb, 2.5 MG NEB Q6H, #21 VIAL use every 6 hours scheduled for the next 2 days and then as needed only Prov:SANDRA TENAMick Keller 11/02/18 Thiamine* (Vitamin B-1*) 100 Mg Tablet, 100 MG PO DAILY, #30 TAB Prov:MALLIKATRINIDAD 11/02/18 Multivitamins* (Theragran*) 1 Tab Tab, 1 TAB PO DAILY, #30 TAB Prov:LUIS FERNANDO TENABRANDON Keller 11/02/18 Folic Acid* (Folic Acid*) 1 Mg Tablet, 1 MG PO DAILY, #30 TAB Prov:MALLIKATRINIDAD 11/02/18 Amoxicillin/Potassium Clav (Amox-Clav 875-125 mg Tablet) 875-125 mg Tab, 1 TAB PO BID, #20 TAB Prov:TRINIDAD TENA 11/02/18 Follow-up Plan Patient to follow-up with his primary care doctor within the next 1 week to ensure continued resolution of symptoms, and for possible follow-up chest x-ray. Is also advised to complete his antibiotic therapy. Patient is also advised to use the resources provided to help with substance use and abuse. . Primary Care Provider Care Physician No Primary Time spent on discharge: > 30 minutes TRINIDAD TENA Nov 03, 2018 13:51
--- NOTE | 2018-11-05 12:53 | PN ---
DATE: 11/01/2018 SUBJECTIVE: The patient continues to do fairly well. Still requiring high flow oxygen at 6 liters. We discussed treatment plan and ____ management of aspiration pneumonia. OBJECTIVE VITAL SIGNS: Temperature 98.1, pulse 85, respirations 18, blood pressure 106/59. GENERAL: Alert. He is oriented. LUNGS: He continues to have occasional expiratory wheezes, but otherwise clear breath sounds, but th ey are diminished. ABDOMEN: Soft, nontender. EXTREMITIES: No lower extremity edema. LABORATORY DATA: Creatinine today is 1.5 on the labs. Leukocytosis is 11,000, hemoglobin is 13. Ch est x-ray from yesterday continues to show bilateral pneumonia and a CT scan from the shows bila teral opacities, greater on the right. ASSESSMENT: 1. Accidental overdose from substance use. 2. Respiratory failure secondary to #1, improving. 3. Aspiration pneumonia. 4. Mild renal insufficiency. Creatinine is trending down now. 5. Multi-substance abuse, status post cessation counseling. DISPOSITION: Continue antibiotics, continue to wean off oxygen. Continue bronchodilator therapy. T he patient is to be discharged home once creatinine levels have normalized and the patient is able to be on room air. Dictated By: TRINIDAD TENA MD BA/NTS Conf#: [id number] DID#: [id number] CC: FELIX VELARDE MD;*End*
== END 2018-11-02 17:54 | disposition home or self-care (01) | DRG 917 ==
LOC: E/R 03:38 → ICU 04:46 → EDBEDREQSVC 05:10 → TEL 18:35
PROVIDERS: ADMIT Family Medicine; ATTEND Family Medicine
DX: T40.5X1A Poisoning by cocaine, accidental (unintentional), initial encounter (principal); J96.01 Acute respiratory failure with hypoxia; G92 Toxic encephalopathy; J96.02 Acute respiratory failure with hypercapnia; J69.0 Pneumonitis due to inhalation of food and vomit; E87.2 Acidosis; N17.9 Acute kidney failure, unspecified; D64.9 Anemia, unspecified; D69.6 Thrombocytopenia, unspecified; E87.5 Hyperkalemia; T51.0X1A Toxic effect of ethanol, accidental (unintentional), initial encounter; Y90.4 Blood alcohol level of 80-99 mg/100 ml; R00.0 Tachycardia, unspecified
CPT/HCPCS: 36415; 36600; 71045; 71250; 76775; 80048; 80053; 80076; 80307; 81001; 81003; 82043; 82803; 83735; 84100; 84155; 84300; 85025; 87040; 87081; 90686; 93005; 94664; 96361; 96374; C9113; J2310; J2405; J2543; J3370; J3411; J7030; J7060